=== PATIENT | male | born 1990 | race Caucasian/White ===

== ENCOUNTER 2022-09-10 22:02 | Emergency (ER) | payer OTHER ==
[2022-09-10 22:12] VITALS: BP 150/80
[2022-09-10] MEDS ORDERED: KETOROLAC 60 MG/2 ML VIAL IM STA (22:55)
[2022-09-10] MEDS ORDERED: AZITHROMYCIN 250 MG TABLET PO STA (22:55)
[2022-09-10] MEDS ORDERED: OXYMETAZOLINE HCL 100 SPRAYS BOTTLE NAS STA (22:55)
--- NOTE | 2022-09-10 22:58 | ED Physician Documentation ---
History of Present Illness - Stated complaint Stated Complaint: FEVER/SINUS/HEAD PX - Chief complaint Chief Complaint: Fever - Additonal information Additional information: Patient 31-year-old male presenting to the emergency department with report of headache, sinus pressure, intermittent fevers. Symptoms ongoing x2 weeks. States frequently has upper airway congestion but has had excessive mucus for the last 2 weeks. Did feel as though he was getting better a few days ago but then symptoms rebounded today. Reports frontal headache made worse with palpation of his ethmoid sinuses. Denies neck stiffness, blurred vision, double vision. Does report cough but denies chest pain or shortness of breath. Review of Systems Constitutional: reports: Fever Eyes: denies: Loss of vision Nose: reports: Rhinorrhea / runny nose, Congestion Throat: denies: Dental pain / toothache, Sore throat Cardiac: denies: Chest pain / pressure Respiratory: reports: Cough : denies: Dysuria PD PAST MEDICAL HISTORY - Past Medical History Past Medical History: No - Past Surgical History Past Surgical History: No - Present Medications Home Medications: Ambulatory Orders Medication Instructions Recorded Confirmed Azithromycin [Zithromax] 250 mg PO DAILY #4 tablet 09/10/22 - Allergies Allergies/Adverse Reactions: Allergies Allergy/AdvReac Type Severity Reaction Status Date / Time No Known Drug Allergies Allergy Verified 09/10/22 22:06 - Social History Does the pt smoke?: No Smoking Status: Never smoker Does the pt drink ETOH?: No Does the pt have substance abuse?: No - Immunizations Immunizations are current?: Yes PD ED PE NORMAL - Vitals Vital signs reviewed: Yes - General General: Alert and oriented X 3, No acute distress, Well developed/nourished, Other - HEENT HEENT: Atraumatic, PERRL, EOMI, Ears normal, Moist mucous membranes, Pharynx benign, Dentition benign, Other (Boggy nares bilaterally, tenderness to the ethmoid sinuses on palpation.) - Neck Neck: Supple, no meningeal sign, No bony TTP, No adenopathy, Thyroid normal, No JVD - Cardiac Cardiac: RRR, No murmur, No gallop, No rub, Strong equal pulses - Respiratory Respiratory: No respiratory distress - Abdomen Abdomen: Normal bowel sounds - Male Male : Deferred - Rectal Rectal: Deferred - Derm Derm: Normal color - Extremities Extremities: No deformity - Neuro Neuro: Alert and oriented X 3, management scientist 2-12 intact, No motor deficit, No sensory deficit, Normal speech Results - Vitals Vitals: Vital Signs - 24 hr 09/10/22 22:06 Temperature 36.8 C Heart Rate 75 Respiratory 18 Rate Blood Pressure 150/80 H O2 Saturation 97 Oxygen O2 Source Room air PD Medical Decision Making - ED course Complexity details: d/w patient ED course: Patient 31-year-old male presenting to the emergency department with 2-week history of intermittent fever as well and sinus congestion, rhinorrhea, headache. Afebrile, hemodynamically stable on arrival to the emergency department. Initial differential diagnosis included but not limited to viral infection, sinusitis, meningitis, cavernous venous sinus thrombosis. Patient's physical exam demonstrates boggy erythematous naris bilaterally as well as tenderness to the ethmoid sinuses. No report of blurred vision, double vision that would be of concern for cavernous venous sinus thrombosis and patient has no nuchal rigidity on exam. Clear aeration is noted on all lung fine. Viral swabbing is considered however is unlikely to have high clinical yield. Given the duration of the patient's symptoms however I do believe it is appropriate to trial a short course of antibiotics. Prior to this I did explain to him that most sinusitis is viral in nature and that it is possible that this medication will not harm him we did discuss risks and benefits and he was agreeable to this plan. He was given a dose of azithromycin here in the emergency department. Additionally we discussed strategies for management of his pain including [id number] medications he can take for pain control as well as oral and nasal decongestants. He was given a dose of Toradol as well as a treatment with oxymetazoline here in the emergency department. At this time I will discharge with 4 more days of Zithromax waiting for him at his pharmacy. I will encourage him to follow-up carefully with his primary care doctor or return to the emergency department for new or worsening symptoms. Departure - Departure Disposition: 01 Home, Self Care Clinical Impression: Sinusitis Qualifiers: Sinusitis location: ethmoidal Chronicity: unspecified Qualified Code(s): J32.2 - Chronic ethmoidal sinusitis Instructions: ED Sinusitis Abx Tx Prescriptions: Azithromycin [Zithromax] 250 mg PO DAILY #4 tablet Comments: Thank you for allowing us to care for you today at [facility]. Today in the emergency department you are diagnosed with sinusitis. As we discussed in most instances antibiotics are not used for the treatment of sinusitis except in rare instances such as yours were the symptoms have been ongoing for greater than 2 weeks. You are given a dose of an oral antibiotic here in the emergency department. I have sent 4 more days of antibiotics to your preferred pharmacy, [facility] in [place]. I do recommend regular use of a nasal decongestant such as the oxymetazoline given here in the emergency department. I also recommend regular alternating uses of ibuprofen and acetaminophen. Other things that can be quite helpful in the setting of acute sinusitis include cool face masks, ice packs applied directly over the eyes or face, humidified air. I would like you to make a follow-up appoint with your primary care doctor. Please contact them first thing on Sunday in order to arrange for a follow-up appointment. If it anytime you develop any new or worsening symptoms please not hesitate to return.
== END 2022-09-10 23:17 | disposition home or self-care (01) ==
LOC: ED 22:02
DX: J32.2 Chronic ethmoidal sinusitis (principal)
CPT/HCPCS: 96372; 99283; A9270